=== PATIENT | male | born 1990 | race African-American/Black ===

== ENCOUNTER 2020-04-10 13:34 | Outpatient (CLI) | payer OTHER ==
[2020-04-10 14:16] VITALS: BP 110/58
--- NOTE | 2020-04-10 14:16 | SLEEP CARE CONSULTATION ---
Information from patient questionnaire entered by Danay Holliday. I have reviewed and concur with the information entered by Danay Holliday. This document represents the service I personally performed and the decisions made by me, Yesika Hendricks ARNP. History of Present Illness Service Date and Time: 04/10/2020 1334 Reason for Visit: New patient Chief Complaint: reports: Unrefreshed sleep, Snoring, Excessive daytime sleepiness, Observed pauses in breathing, Fatigue, Frequent awakenings at night. denies: Insomnia Date of Onset: 1 year Usual bedtime: by 10pm; weekends stays up to 1-2 AM Time it takes to fall asleep: 60 minutes or so Snores at night: Yes Observed to quit breathing while asleep: Yes Number of times waking at night: at least 1; 1-2 times average Reasons for waking at night: reports: Snoring. denies: Choking, Gasping for air Toss, Turn, or Twitch while sleeping: Yes Recalls having dreams: No Usually gets out of bed at: 5 am; weekends up at [id number] Feels refreshed in the morning: No Morning headache: No Sleepy or fatigued during the day: Yes Ever fallen asleep while driving: No Takes day naps: No Dreams during day naps: No Prior sleep studies: No Additional HPI information: I had the pleasure of seeing ANTHONY MUNOZ today regarding the possibility of him having a sleep disorder. His current complaints are unrefreshed sleep, snoring, observed pauses in breathing, excessive daytime sleepiness, frequent night awakenings and fatigue. He states his girlfriend has noted that he snores loudly and stops breathing in his sleep. He states he never wakes up feeling rested with energy. He takes 1+ hours to go to sleep nightly and awakens 1-2 times during the night. He has woken himself up snoring but denies choking or gasping in his sleep. He has no current medical conditions requiring medications. His mother snores and is being treated for sleep apnea. - Parasomnia Symptoms Ever been unable to move upon waking from sleep: No Walks in sleep: No Talks in sleep: No Ever acted out dreams in sleep: No Ever felt weak in the knees when startled or emotional: No Bothered by creepy, crawly, restless sensations in legs: No Problems with memory or concentration: No Subjective Initial [place] Sleepiness Scale score: 13 (in 2020) Past Medical History Past Medical History: denies: Hypertension, Congestive Heart Failure, Diabetes, Coronary Heart Disease, Arrythmia, Hypothyroidism, Anxiety, Impotence, Depression, Mood disorder, GERD, Attention deficit Social History The patient's occupation is a Active . Patient is Single and lives in [place]. Have you smoked in the past 12 months: No Alcohol use: Yes Alcohol amount and frequency: a few drinks rarely Caffeine use: No Family History Family history of sleep disordered breathing: Yes (mother) Family Hx Sleep Apnea: Mother: Snoring, Sleep apnea - Treated Allergies and Home Medications Drug allergies reviewed: Yes (NKDA) Home medication list reviewed: Yes (none) Review of Systems Weight gain over past 5 years: 15 Cardiovascular: denies: high blood pressure, palpitations, chest pain, irregular heart rate or pulse, leg or foot swelling Respiratory: denies: shortness of breath, chronic cough Gastrointestinal: denies: heartburn, difficulty swallowing Urinary: denies: impotence Neurological: denies: headaches, seizure, head trauma, speech dysfunction, gait or balance problems Psychiatric: denies: Attention Deficit Hyperactivity, anxiety, depression, mood disorder, claustrophobia Ear/Nose/Throat: reports: tonsillectomy. denies: nasal congestion, sinus problems, nose bleeds, dry mouth/throat, injury to nose, wisdom teeth removed Endocrine: denies: thyroid disease Musculoskeletal: denies: joint pain, back pain, muscle pain or cramping, mobility problems Immunologic: denies: allergies to food or environment Physical Exam Blood Pressure: 110/58 Cuff size: long Heart Rate: 61 O2 Saturation: 94 Height: 5 ft 8 in Weight: 159 lb Body Mass Index: 24.1 BMI Classification: Healthy weight Neck circumference: 16.25 HEENT: No craniofacial malformation Nostrils: patent to airflow Turbinates: normal Septum: midline Mouth and throat: narrow oropharynx Hard palate: arched Uvula visualization: 25% Mallampati Class III Tongue: enlarged in size with teeth cordova on lateral edges Tonsils: absent bilaterally Chin and jaw: normal size and position Neck: normal w/o lymphadenopathy or thyromegaly Heart: regular rate and rhythm Lungs: clear bilaterally Impression and Plan 1. Suspected Obstructive Sleep Apnea-Hypopnea Syndrome, as previously diagnosed.suggested by a history of loud and irregular snoring, observed cessation of breath while asleep, frequent awakening during the night, unrefreshed sleep, and excessive daytime sleepiness. I reviewed with patient that a narrow oropharynx and obesity are common predisposing factors for obstructive sleep apnea-hypopnea syndrome. I recommend proceeding to polysomnography to confirm the diagnosis and to assess severity. If the patient has significant sleep disordered breathing, a manual CPAP titration study will also be performed to find the optimal treatment pressure. I informed the patient of what the sleep studies involve and after some discussion, obtained agreement to proceed. The pathophysiology of obstructive sleep apnea-hypopnea syndrome was discussed with the patient and health risks of cardiovascular and cerebrovascular disease if not treated. AAS brochure for obstructive sleep apnea-hypopnea syndrome given and reviewed. Risks of drowsy driving discussed in detail and patient advised to avoid long distance driving and to tie puller at the first sign of drowsiness. Patient agreed to plan. * Schedule polysomnography +- manual CPAP titration study. * Avoid long distance driving or driving when feeling sleepy. * Avoid alcohol, sedative and muscle relaxant around bedtime. * Review instructions provided by trained office staff on how to prepare for the sleep study. * Return for follow-up after sleep study completed. Time Spent with Patient (minutes): 30
== END 2020-04-10 13:35 | disposition home or self-care (01) ==
LOC: SC 13:34
PROVIDERS: ATTEND Nurse Practitioner Family
DX: R06.83 Snoring (principal); G47.8 Other sleep disorders; G47.10 Hypersomnia, unspecified; R53.83 Other fatigue; R06.81 Apnea, not elsewhere classified
CPT/HCPCS: 99204; 99212

== ENCOUNTER 2020-07-28 20:24 | Outpatient (CLI) | payer OTHER | END 2020-07-28 20:25 | disposition home or self-care (01) | LOC: SC 20:24 | PROVIDERS: ATTEND Nurse Practitioner Family | DX: R06.83 Snoring (principal); G47.8 Other sleep disorders; R06.81 Apnea, not elsewhere classified; G47.10 Hypersomnia, unspecified | CPT/HCPCS: 95810 ==

== ENCOUNTER 2020-08-05 15:12 | Outpatient (CLI) | payer OTHER ==
--- NOTE | 2020-08-05 15:44 | SLEEP CARE CONSULTATION ---
Information from patient questionnaire entered by Terri Porter. I have reviewed and concur with the information entered by Terri Porter. This document represents the service I personally performed and the decisions made by , Yesika Hendricks ARNP. History of Present Illness Service Date and Time: 08/05/2020 151 Initial [place] Sleepiness Scale score: 13 (in 2020) Current [place] Sleepiness Scale score: 11 Additional HPI information: ANTHONY MUNOZ returns for follow up and results of the recently performed polysomnography. The patient was informed of the following findings: patient has no significant sleep disordered breathing with an average AHI of 0.6 and jose oxygen saturation of 89%. I explained the pathophysiology behind obstructive sleep apnea. Patient does not have sleep apnea and was advised how weight gain could increase the risk of developing sleep apnea in the future. I strongly encouraged the patient to lose weight. Patient has moderate to loud snoring. Snoring can be reduced by weight loss. Weight loss is best achieved with diet consult. Patient instructed to contact PCP for referral. Snoring can also be treated with an oral appliance from a dentist. Advised to check insurance coverage. In addition, an ENT evaluation can be do to see if other treatment is indicated. Patient counseled not drink alcohol less than 4 hours before bedtime as it can increase snoring and apnea. Patient was cautioned about risks of drowsy driving until sleepiness symptoms resolve. Sleep Study - Results Type of Sleep Study: Polysomnography Prior sleep studies: No Polysomnography/Home Sleep Study results: IMPRESSION: The quality of the study is good. The patient had slightly reduced sleep efficiency due to two prolonged awakenings during the night. The sleep architecture was normal. Respiratory monitoring showed no significant sleep disordered breathing (AHI = 0.6) or hypoxia (jose oxygen saturation of 89%). The patient did not sleep supine during this study (supine AHI = 0.0; non-supine = 0.58). Snore was moderate to loud in intensity. There was no significant periodic leg movement of sleep. Cardiac rhythm was normal sinus rhythm without significant arrhythmia. No abnormal behavior (parasomnia) observed during the night. Allergies and Home Medications Drug allergies reviewed: Yes (NKDA) Home medication list reviewed: Yes (no changes) Review of Systems Review of systems same as previous: Yes (no changes) Physical Exam Heart Rate: 73 O2 Saturation: 98 Height: 5 ft 8 in Weight: 157 lb Body Mass Index: 23.8 BMI Classification: Healthy weight Impression and Plan 1. Snoring but no significant sleep disordered breathing. Patient advised that often weight loss will reduce snoring as well as apnea risk. An oral appliance can also be used for snoring. This would require a dental consultation. Patient cautioned not to use other online appliances as can cause bite issues. A list of accredited dentists in area and one local dentist who makes oral appliances given. Patient is advised to check if insurance will cover. An ENT consult can also be helpful to determine if any other treatment is an option. I discussed with patient that his test did not include him sleeping on his side so we cannot rule out obstructive sleep apnea in the supine position. I offered to order a HST and have hims sleep on his back. He would like to try to just sleep on his side since he does not have significant sleep apnea non-supine at this time. He will follow up with us again if his symptoms to no improve or worsen. * Attempt to lose weight * Avoid alcohol consumption near bedtime * The patient is cautioned about driving until sleepiness is completely resolved. * Return as needed. Counseling Topics: Weight loss health impact Visit Type: In Office Time Spent with Patient (minutes): 16 Provider Statement: I spent 100% of the Face to Face Visit with the patient with greater than 50% spent counseling the patient and coordination of care.
== END 2020-08-05 15:13 | disposition home or self-care (01) ==
LOC: SC 15:12
PROVIDERS: ATTEND Nurse Practitioner Family
DX: R06.83 Snoring (principal); R53.83 Other fatigue; R06.81 Apnea, not elsewhere classified; G47.8 Other sleep disorders
CPT/HCPCS: 99212; 99213

== ENCOUNTER 2021-04-27 09:47 | Outpatient (CLI) | payer OTHER ==
--- NOTE | 2021-04-27 10:07 | SLEEP CARE CONSULTATION ---
Information from patient questionnaire entered by Carlee Young. I have reviewed and concur with the information entered by Carlee Young. This document represents the service I personally performed and the decisions made by , Yesika Hendricks ARNP. History of Present Illness Service Date and Time: 04/27/2021 0947 AHI: 0.6 Reason for follow up: other (9 month, possible repeat of study) Prior sleep studies: Yes Year and Where: 07/2020 [facility] Type of Sleep Study: Polysomnography HPI additional information: ANTHONY MUNOZ returns today for a follow-up. His last sleep study dated 07/28/20 showed an AHI of 0.6. He feels things are worse since the last time he was here. He has been falling asleep at work about 2-3 times a week. He snores loudly and has pauses in breathing according to his . She has not noted any gasping. He does not feel rested when he gets up in the morning. He is excessively sleepy during the day. Subjective Initial [place] Sleepiness Scale score: 13 (in 2019) Current [place] Sleepiness Scale score: 20 Allergies and Home Medications Home medication list reviewed: Yes (no changes) Review of Systems Review of systems same as previous: Yes (no changes) Physical Exam Heart Rate: 63 O2 Saturation: 97 Height: 5 ft 8 in Weight: 163 lb Body Mass Index: 24.7 BMI Classification: Healthy weight Impression and Plan 1. Suspected Obstructive Sleep Apnea-Hypopnea Syndrome, as suggested by a history of loud and irregular snoring, observed cessation of breath while asleep, unrefreshed sleep, and excessive daytime sleepiness. Patient had a previous PSG where he had two prolonged awakenings and he did not sleep supine. I did recommend at that time to retest but he wanted to try positional sleeping on his sides. He states he is able to sleep non-supine but he is still snoring and having pauses in breathing. He is still excessively tired during the day and falling asleep at work 2-3 times a week. I recommend proceeding to polysomnography/HST to confirm the diagnosis and to assess severity. I obtained agreement to proceed. The pathophysiology of obstructive sleep apnea-hypopnea syndrome was discussed with the patient and health risks of cardiovascular and cerebrovascular disease if not treated. Risks of drowsy driving discussed in detail and patient advised to avoid long distance driving and to felt puller at the first sign of drowsiness. Patient agreed to plan. * Schedule polysomnography +- manual CPAP titration study and return in 1-2 weeks after the study to discuss result and initiate therapy. * Avoid long distance driving or driving when feeling sleepy. * Avoid alcohol, sedative and muscle relaxant around bedtime. * Maintain a healthy weight. * Review instructions provided by trained office staff on how to prepare for the sleep study. * Return for follow-up after sleep study completed. Visit Type: In Office Time Spent with Patient (minutes): 15 Provider Statement: I spent 100% of the Face to Face Visit with the patient with greater than 50% spent counseling the patient and coordination of care.
== END 2021-04-27 09:48 | disposition home or self-care (01) ==
LOC: SC 09:47
PROVIDERS: ATTEND Nurse Practitioner Family
DX: R06.83 Snoring (principal); R06.81 Apnea, not elsewhere classified; G47.10 Hypersomnia, unspecified
CPT/HCPCS: 99212

== ENCOUNTER 2021-05-11 09:18 | Outpatient (CLI) | payer OTHER | END 2021-05-11 09:19 | disposition home or self-care (01) | LOC: SC 09:18 | PROVIDERS: ATTEND Nurse Practitioner Family | DX: G47.33 Obstructive sleep apnea (adult) (pediatric) (principal); R09.02 Hypoxemia | CPT/HCPCS: 95806 ==

== ENCOUNTER 2021-06-01 08:00 | Outpatient (CLI) | payer OTHER | END 2021-06-01 08:10 | LOC: LAB 08:00 | PROVIDERS: ATTEND Family Medicine | DX: J06.9 Acute upper respiratory infection, unspecified (principal); Z20.822 Contact with and (suspected) exposure to COVID-19 | CPT/HCPCS: 87070 ==

== ENCOUNTER 2021-06-04 13:23 | Outpatient (CLI) | payer OTHER ==
--- NOTE | 2021-06-04 13:47 | SLEEP CARE CONSULTATION ---
Information from patient questionnaire entered by Carlee Young. I have reviewed and concur with the information entered by Carlee Young. This document represents the service I personally performed and the decisions made by me, Yesika Hendricks ARNP. History of Present Illness Service Date and Time: 06/04/2021 1323 Initial [place] Sleepiness Scale score: 13 (in 2020) Current [place] Sleepiness Scale score: 19 Additional HPI information: ANTHONY MUNOZ returns for follow up and results of the recently performed home sleep study. I explained the pathophysiology behind obstructive sleep apnea. We then spent quite a bit of time discussing different treatment options. For mild obstructive sleep apnea, surgery and oral appliance are alternatives to nasal CPAP therapy but in moderate or severe cases, nasal CPAP is the most effective and reliable treatment. Because apnea is primarily in supine position, then positional management therapy could be effective. Methods discussed such as positioning with pillows prevent supine sleep. I reviewed the impact of weight changes on sleep apnea and strongly recommended losing weight. After some discussion, the patient opted to go with the nasal CPAP therapy. Nasal autoCPAP set at 4-15 cmH20 will be ordered with rationale explained. A manual titration study will be ordered if unable to find optimal pressure with office adjustments. I explained how CPAP machine works with sample devices Respirproteonomix Dreamstation and ResCapical [id number] and what to expect when using the machine. Using CPAP every night in order to get used to it was emphasized. Patient advised to put CPAP mask on before getting into bed so as not to fall asleep without CPAP. To assist acclimation to CPAP use, it could also be used for a short time during day while reading or watching TV. The patient was instructed to call the CPAP supplier to discuss any mechanical problem that may occur. If the mask given is uncomfortable or is difficult to keep on through the night even with adjustment, contact the CPAP supplier as many will replace with another mask style if notified before 30 days. If snoring or perceives is not getting enough air or too much air from the machine, notify this office. AASM patient education PAP tips reviewed and given to patient. Patient does not drink alcohol. Patient was cautioned about risks of drowsy driving until sleepiness symptoms resolve. Sleep Study - Results Type of Sleep Study: Home sleep study Prior sleep studies: Yes Year and Where: 04/2021 and 07/2020 [facility] Polysomnography/Home Sleep Study results: Physician Impression: The quality of the study is good. The length of the study is adequate (> 240 minutes). Please also see the tabulated and graphic data. 1. Obstructive Sleep Apnea-Hypopnea (ICD-10 G47.33), moderate, with an AHI of 15.2/hr and jose SaO2 of 78%. During the study, the patient had 26 apneas (26 obstructive, 0 central, 0 mixed) and 43 hypopneas. The longest episode lasted 871.5 seconds. The patient slept almost exclusively in supine position (supine AHI was 16.5 and non-supine, 0.00). 2. Hypoxemia (ICD-10 R09.02), moderate, with the lowest oxygen saturation of 78 % and 23.0 minutes with SaO2 under 90%. Baseline oxygen saturation was normal (Average oxygen saturation was 92%). 3. Tachycardia, with maximum recorded heart rate of 198 beats per minute. Allergies and Home Medications Home medication list reviewed: Yes (no changes) Review of Systems Review of systems same as previous: Yes (no changes) Physical Exam Vital signs obtained and entered by: BRITTANIE Parsons Blood Pressure: 109/65 Cuff size: wrist Heart Rate: 58 O2 Saturation: 99 Height: 5 ft 8 in Weight: 158 lb (with boots) Body Mass Index: 24.0 BMI Classification: Healthy weight Impression and Plan 1. Obstructive Sleep Apnea-Hypopnea Syndrome, moderate, with lowest oxygen saturation of 78%. Obviously this is the cause of the patients symptoms of unrefreshed sleep, and excessive daytime sleepiness. Positive pressure therapy could benefit his overall reduce risks for cardiovascular or cerebrovascular events. As mentioned above, the patient will be started on nasal autoCPAP therapy with pressure set at 4-15 cmH2O. Compliance guidelines also reviewed. A copy of compliance guidelines will be given for reference at check out. Because the apnea is more severe supine, I instructed to avoid sleeping supine using pillow positioning until able to start CPAP use. 2. Hypoxemia, moderate, with the lowest oxygen saturation of 78 % and 23.0 minutes with SaO2 under 90%. His baseline oxygen saturation was normal with an average oxygen saturation of 92%. * Nasal auto CPAP therapy, pressure at 4-15 cm H2O. * Follow up with PCP for elevated heart rate during sleep study * Attempt to lose weight. * Avoid alcohol consumption near bedtime. * Avoid supine sleep until using CPAP. * The patient is again cautioned about driving until sleepiness completely resolves. * Return one month after CPAP obtained. I will assess response to therapy and compliance at that time. Counseling Topics: Weight loss health impact Visit Type: In Office Time Spent with Patient (minutes): 13 Provider Statement: I spent 100% of the Face to Face Visit with the patient with greater than 50% spent counseling the patient and coordination of care.
[2021-06-04 13:48] VITALS: BP 109/65
== END 2021-06-04 13:24 | disposition home or self-care (01) ==
LOC: SC 13:23
PROVIDERS: ATTEND Nurse Practitioner Family
DX: G47.33 Obstructive sleep apnea (adult) (pediatric) (principal); R09.02 Hypoxemia
CPT/HCPCS: 99212

== ENCOUNTER 2022-08-05 19:56 | Emergency (ER) | payer MEDICAID, OTHER ==
[2022-08-05 21:18] VITALS: BP 125/61
--- NOTE | 2022-08-05 22:00 | ED Physician Documentation ---
PD HPI UPPER EXT INJURY - Stated complaint Stated Complaint: LT HAND LAC - Chief complaint Chief Complaint: Laceration - History obtained from History obtained from: Patient - Additonal information Additional information: R hadnded and cut L index finger w knife jst ETHNOGR[employer]HER. UTD Tet. PD PAST MEDICAL HISTORY - Past Medical History Past Medical History: Yes Psych: ADD/ADHD - Past Surgical History Past Surgical History: No - Present Medications Home Medications: Ambulatory Orders Medication Instructions Recorded Confirmed Bacitracin Zinc Oint 1 applic TOP BID #1 each 08/05/22 Dextroamphetamine/Amphetamine 20 mg PO DAILY 08/05/22 08/05/22 [Adderall 20 mg Tablet] - Allergies Allergies/Adverse Reactions: Allergies Allergy/AdvReac Type Severity Reaction Status Date / Time No Known Drug Allergies Allergy Verified 08/05/22 21:18 - Social History Does the pt smoke?: No Smoking Status: Never smoker Does the pt have substance abuse?: No - POLST Patient has POLST: No PD ED PE NORMAL - Vitals Vital signs reviewed: Yes - General General: Alert and oriented X 3, No acute distress - Extremities Extremities: Other (<1cm2 fingertip am L 2nd finger) - Neuro Neuro: Alert and oriented X 3 - Psych Psych: Normal mood, Normal affect Results - Vitals Vitals: Vital Signs - 24 hr 08/05/22 21:05 Temperature 36.5 C Heart Rate 60 Respiratory 15 Rate Blood Pressure 125/61 O2 Saturation 100 Oxygen O2 Source Room air PD Medical Decision Making - ED course ED course: There was some nail involvement. Trimmed, Irrigated. dressed with xeroform tubegauze and d/w pt wound care. Departure - Departure Disposition: 01 Home, Self Care Clinical Impression: Fingertip avulsion Qualifiers: Encounter type: initial encounter Qualified Code(s): S61.209A - Unspecified open wound of unspecified finger without damage to nail, initial encounter Condition: Good Record reviewed to determine appropriate education?: Yes Instructions: ED Laceration Amputation Finger Tip Open Tx Prescriptions: Bacitracin Zinc Oint 1 applic TOP BID #1 each Comments: As discussed, you can take the current dressing off in 24 hours then apply the antibiotic ointment, after soap and water and a fingertip bandage which is available at any of the big drugstores. You will probably have to do that for maybe a week or 2 and then it should be fully healed. Not unreasonable to have a wound check with your doctor in a week especially if not healing as expected. Discharge Date/Time: 08/05/22 22:04
== END 2022-08-05 22:04 | disposition home or self-care (01) ==
LOC: ED 19:56
DX: S61.311A Laceration without foreign body of left index finger with damage to nail, initial encounter (principal); W26.0XXA Contact with knife, initial encounter; Y93.G1 Activity, food preparation and clean up
CPT/HCPCS: 99282; 99283